=== PATIENT | female | born 1990 | race Caucasian/White ===

== ENCOUNTER 2019-12-09 20:38 | Emergency (ER) | payer OTHER, SELFPAY ==
--- NOTE | 2019-12-09 20:42 | ED_ITS ---
HPI - General Adult General Stated complaint: 10 wks , unable to keep anything down Time Seen by Provider: 12/09/19 20:42 History of Present Illness HPI narrative: 29-year-old otherwise healthy G 1 P 0 at approximately 10 weeks with persistent nausea and vomiting. Unable to keep anything down. She has tried some ODT Zofran this afternoon and probably vomited. She has lost somewhere between 3 and 5 lb. Has not yet had her 1st OB visit and was recently referred [facility] for her OB care. Review of Systems Review of Systems Narrative: Note some related constipation Denies ? fever ? cough ? cold ? chills ? chest pain ? dyspnea ? orthopnea ? wheezing ? abdominal pain ? skin changes ? rashes Patient History Medical History (Updated 12/09/19 @ 20:50 by Holli Clemons MD) Healthy adult (Acute)
[2019-12-09 20:45] VITALS: BP 124/81; PULSE 96; RESP 19; TEMP 36.6; O2SAT 99; BMI 22.1
[2019-12-09] MEDS: SODIUM CHLORIDE 0.9% 1,000 ML 1000 ML IV ×2 (21:05→21:59)
[2019-12-09] MEDS: ONDANSETRON 4 MG/2 ML INJ 8 MG IV (21:06)
[2019-12-09 21:07] LABS: Add Manual Diff / Slide Review NO; Basophils Absolute Auto 100 /uL (0-100); Basophils Percent Auto 0.6 % (0-2); Eosinophils Absolute Auto 100 /uL (0-450); Eosinophils Percent Auto 0.4 % (2-4); Hemoglobin 14.3 g/dL (12.0-16.0); Lymphocytes Absolute Auto 3700 /uL (1100-4500); Mean Corpuscular HGB Conc 34.7 % (30-36); Mean Corpuscular Hemoglobin 31.6 PG (26-34); Mean Corpuscular Volume 90.9 fL (80-100); Monocytes Absolute Auto 1000 /uL (0-900); Monocytes Percent Auto 7.4 % (3-14); Neutrophils Absolute Auto 8400 /uL (1500-7000); Neutrophils Percent Auto 63.6 % (50-75); Platelet Count 262 X10^3/uL (150-400); Red Blood Cell Count 4.51 X10^6/uL (4.0-5.2); Red Cell Distribution Width 11.8 % (11.6-14.8); White Blood Cell Count 13.1 X10^3/uL (4.5-11.0)
--- NOTE | 2019-12-09 21:35 | ED_ITS ---
HPI - Nausea/Vomiting/Diarrhea General Chief complaint: Nausea/Vomiting/Diarrhea Stated complaint: 10 wks , unable to keep anything down Time Seen by Provider: 12/09/19 20:42 Source: patient Mode of arrival: Ambulatory Limitations: no limitations History of Present Illness HPI Narrative: HPI narrative: 29-year-old otherwise healthy G 1 P 0 at approximately 10 weeks with persistent nausea and vomiting. Unable to keep anything down. She has tried some ODT Zofran this afternoon and probably vomited. She has lost somewhere between 3 and 5 lb. Has not yet had her 1st OB visit and was recently referred [facility] for her OB care. Related Data Previous Rx's Medication Instructions Recorded metoclopramide HCl [Reglan] 10 mg PO Q6H PRN #30 tab 12/09/19 Allergies Allergy/AdvReac Type Severity Reaction Status Date / Time No Known Drug Allergies Allergy Verified 12/09/19 22:16 Review of Systems Review of Systems Narrative: Denies ? fever ? cough ? cold ? chills ? chest pain ? dyspnea ? orthopnea ? wheezing ? abdominal pain ? skin changes ? rashes Patient History Medical History Healthy adult (Acute) Social History Smoking Status: Never smoker Smoking Status: Never smoker alcohol intake frequency: other Substance Use Type: does not use Exam Narrative Exam Narrative: General: Alert appropriate in no acute distress Respiratory: Able to speak in full sentences, no obvious respiratory distress Skin: No obvious rashes, warm and dry Neurologic: Grossly intact no obvious asymmetries or abnormalities Psych, appropriate insight and affect, cooperative Bedside ultrasound: Single viable intrauterine fetus with crown-rump length at 9 weeks 6 days Initial Vital Signs Initial Vital Signs: Vital Signs Temperature 97.9 F 12/09/19 20:45 Pulse Rate 96 H 12/09/19 20:45 Respiratory Rate 19 12/09/19 20:45 Blood Pressure 124/81 12/09/19 20:45 Pulse Oximetry 99 12/09/19 20:45 Course Orders Ordered: ED Orders 12/09/19 20:59 Complete Blood Count AUTO DIFF Stat Comprehensive Metabolic Panel Stat Thyroid Stimulating Hormone Stat 12/09/19 21:12 Blood Culture Stat 04/15/20 22:09 Urinalysis and Microscopic Stat Discontinued Medications Sodium Chloride (Normal Saline 0.9%) 1,000 mls @ 1,000 mls/hr IV BOLUS ONE Stop: 12/09/19 21:49 Last Admin: 12/09/19 21:05 Dose: 1,000 mls/hr Documented by: TASHIA Sodium Chloride (Normal Saline 0.9%) 1,000 mls @ 1,000 mls/hr IV BOLUS ONE Stop: 12/09/19 21:49 Last Admin: 12/09/19 21:59 Dose: 1,000 mls/hr Documented by: TASHIA Metoclopramide HCl (Reglan) 10 mg IV NOW ONE Stop: 12/09/19 22:13 Last Admin: 12/09/19 22:16 Dose: 10 mg Documented by: AUSTEN Ondansetron HCl (Zofran) 8 mg IV NOW ONE Stop: 12/09/19 20:51 Last Admin: 12/09/19 21:06 Dose: 8 mg Documented by: TASHIA Vital Signs Vital signs: Vital Signs - 8 hr 12/09/19 20:45 Temperature 97.9 F Pulse Rate 96 H Respiratory Rate 19 Blood Pressure 124/81 Pulse Oximetry 99 MDM - Nausea/Vomiting/Diarrhea Medical Records Attestation: I reviewed the patient's medical records. Lab Data Attestation: I reviewed the patient's lab results. Result diagrams: 12/09/19 20:59 12/09/19 20:59 Labs: Lab Results 12/09/19 12/09/19 12/09/19 Range/Units 20:59 20:59 20:59 WBC 13.1 H (4.5-11.0) X10^3/uL RBC 4.51 (4.0-5.2) X10^6/uL Hgb 14.3 (12.0-16.0) g/dL Hct 41.0 (36-46) % MCV 90.9 (80-100) fL MCH 31.6 (26-34) PG MCHC 34.7 (30-36) % RDW 11.8 (11.6-14.8) % Plt Count 262 (150-400) X10^3/uL Neut % (Auto) 63.6 (50-75) % Lymph % (Auto) 28.0 (25-40) % [place] % (Auto) 7.4 (3-14) % Eos % (Auto) 0.4 L (2-4) % Baso % (Auto) 0.6 (0-2) % Neut # (Auto) 8400 H (3909-4321) /uL Lymph # (Auto) 3700 (3397-6741) /uL [place] # (Auto) 1000 H (0-900) /uL Eos # (Auto) 100 (0-450) /uL Baso # (Auto) 100 (0-100) /uL Sodium 138 (137-145) mmol/L Potassium 3.9 (3.4-5.1) mmol/L Chloride 108 H (98-107) mmol/L Carbon Dioxide 20 L (22-32) mmol/L BUN 10 (7-17) mg/dL Creatinine 0.72 (0.52-1.04) mg/dL Estimated GFR > 60.0 (>60) mL/min BUN/Creatinine Ratio 13.9 (6-22) Glucose 100 (70-100) mg/dL Calcium 9.4 (8.4-10.2) mg/dL Total Bilirubin 0.3 (0.2-1.3) mg/dL AST 27 (14-36) IU/L ALT 7 (<35) IU/L Alkaline Phosphatase 92 (38-126) U/L Total Protein 7.4 (6.3-8.2) g/dL Albumin 4.3 (3.5-5.0) g/dL Globulin 3.1 (1.7-4.1) g/dL Albumin/Globulin Ratio 1.4 (1.0-2.8) TSH 0.34 L (0.47-4.68) uIU/mL Urine Color Urine Appearance Urine pH (4.5-8.0) Ur Specific [place] (1.000-1.035) Urine Protein (Negative) Urine Glucose (UA) (Negative) g/dL Urine Ketones (NEGATIVE) Urine Occult Blood (Negative) Urine Nitrate (Negative) Urine Bilirubin (NEGATIVE) Urine Urobilinogen (0.2) E.U./dL Ur Leukocyte Esterase (NEGATIVE) Urine RBC (0-5/HPF) Urine WBC (0-5/HPF) Urine Bacteria (None) Ur Culture Indicated? Micro UA Comment 04/15/20 Range/Units 22:09 WBC (4.5-11.0) X10^3/uL RBC (4.0-5.2) X10^6/uL Hgb (12.0-16.0) g/dL Hct (36-46) % MCV (80-100) fL MCH (26-34) PG MCHC (30-36) % RDW (11.6-14.8) % Plt Count (150-400) X10^3/uL Neut % (Auto) (50-75) % Lymph % (Auto) (25-40) % [place] % (Auto) (3-14) % Eos % (Auto) (2-4) % Baso % (Auto) (0-2) % Neut # (Auto) (3567-1537) /uL Lymph # (Auto) (1367-4664) /uL [place] # (Auto) (0-900) /uL Eos # (Auto) (0-450) /uL Baso # (Auto) (0-100) /uL Sodium (137-145) mmol/L Potassium (3.4-5.1) mmol/L Chloride (98-107) mmol/L Carbon Dioxide (22-32) mmol/L BUN (7-17) mg/dL Creatinine (0.52-1.04) mg/dL Estimated GFR (>60) mL/min BUN/Creatinine Ratio (6-22) Glucose (70-100) mg/dL Calcium (8.4-10.2) mg/dL Total Bilirubin (0.2-1.3) mg/dL AST (14-36) IU/L ALT (<35) IU/L Alkaline Phosphatase (38-126) U/L Total Protein (6.3-8.2) g/dL Albumin (3.5-5.0) g/dL Globulin (1.7-4.1) g/dL Albumin/Globulin Ratio (1.0-2.8) TSH (0.47-4.68) uIU/mL Urine Color Yellow Urine Appearance Clear Urine pH 7.0 (4.5-8.0) Ur Specific [place] 1.020 (1.000-1.035) Urine Protein Negative (Negative) Urine Glucose (UA) Negative (Negative) g/dL Urine Ketones Trace H (NEGATIVE) Urine Occult Blood Negative (Negative) Urine Nitrate Negative (Negative) Urine Bilirubin Negative (NEGATIVE) Urine Urobilinogen 0.2 (0.2) E.U./dL Ur Leukocyte Esterase Negative (NEGATIVE) Urine RBC None seen (0-5/HPF) Urine WBC None seen (0-5/HPF) Urine Bacteria None seen (None) Ur Culture Indicated? Cult not indicated Micro UA Comment Microscopic normal MDM Narrative Medical decision making narrative: 29-year-old at 9 weeks 6 days with emesis related to . She is feeling better after 2 L of fluid IV Zofran and IV Reglan. She is safe for home discharge. Will follow-up with [facility] for her 1[facility] OB appointment. Prescription for Reglan is given. Questions are answered. Discharge Plan Departure Patient Disposition: Home Clinical Impression: Nausea and vomiting during , Incidental intrauterine Instructions: Nausea of (Alternative Therapy), DI for Nausea -- Child Activity Restrictions/Additional Instructions: Thank you for coming in today. Congratulations on this beautiful little baby. Your blood work was reassuring. The bedside ultrasound we did in the emergency department showed a single live fetus at 9 weeks 6 days (giving you and EDC of Saturday07/08/2020) You are given 8 mg of IV Zofran and 2 L of fluid. I would encourage you to eat and drink as much as you are able to tonight now that your better hydrated. You can continue to use the Zofran prescription you have to help control nausea. I will also give you a prescription for Reglan. You can try both and see which is more effective for you. Keeping small amounts of food in your stomach and sipping on small amounts of liquid all day long may actually be the best option. 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 Hope this is a beautiful and you find tito in your new child. Prescriptions: New metoclopramide HCl [Reglan] 10 mg tablet 10 mg PO Q6H PRN (Reason: nausea and vomiting) Qty: 30 RF: 0
[2019-12-09 21:41] LABS: Alanine Aminotransferase 7 IU/L (<35); Albumin 4.3 g/dL (3.5-5.0); Albumin Globulin Ratio 1.4 (1.0-2.8); Alkaline Phosphatase 92 U/L (38-126); Aspartate Aminotransferase 27 IU/L (14-36); BUN Creatinine Ratio 13.9 (6-22); Bilirubin Total 0.3 mg/dL (0.2-1.3); Blood Urea Nitrogen 10 mg/dL (7-17); Calcium 9.4 mg/dL (8.4-10.2); Carbon Dioxide 20 mmol/L (22-32); Chloride 108 mmol/L (98-107); Estimated Glomerular Filt Rate > 60.0 mL/min (>60); Globulin 3.1 g/dL (1.7-4.1); Glucose 100 mg/dL (70-100); HEMOLYSIS < 15 (0-50); Potassium 3.9 mmol/L (3.4-5.1); Sodium 138 mmol/L (137-145); Total Protein 7.4 g/dL (6.3-8.2)
[2019-12-09 21:59] LABS: Thyroid Stimulating Hormone 0.34 uIU/mL (0.47-4.68)
[2019-12-09 22:14] LABS: Appearance Urine UA CLEAR; Bacteria Urine None Seen; Bilirubin Urine UA NEGATIVE (NEGATIVE); Color Urine UA YELLOW; Glucose Urine UA NEGATIVE (Negative); Ketones Urine UA TRACE (NEGATIVE); Leukocyte Esterase Urine UA NEGATIVE (NEGATIVE); Nitrite Urine UA NEGATIVE (Negative); Occult Blood Urine UA NEGATIVE (Negative); Protein Urine UA NEGATIVE (Negative); RBC Urine None Seen (0-5/HPF); Urobilinogen Urine UA 0.2 E.U./dL (0.2); WBC Urine None Seen (0-5/HPF)
[2019-12-09] MEDS: METOCLOPRAMIDE 10 MG/2 ML INJ IV (22:16)
[2019-12-09 22:18] LABS: Culture Indicated Urine Cult Not Indicated; Urine Comments Microscopic Normal
[2019-12-09 23:07] VITALS: BP 124/81; PULSE 96; RESP 19; O2SAT 99
--- NOTE | 2019-12-16 21:20 | PC.NURSE ---
late entry. Iv stop time 2300 12/09/2019. 2 liters was administered.
--- NOTE | 2019-12-22 09:14 | PC.NURSE ---
Late entry for 12/09/19: Iv fluids started at 21:05 and was stopped at 22:05 and 1000mls was administered. Iv fluids started at 21:49 and was stopped at 22:59 and 1000mls was administered. Total NaCl was 2000 mls.
== END 2019-12-09 23:11 | disposition home or self-care (01) ==
PROVIDERS: Emergency Provider Emergency Medicine
DX: O21.9 Vomiting of pregnancy, unspecified (principal); Z3A.10 10 weeks gestation of pregnancy
CPT/HCPCS: 36415; 80053; 81001; 84443; 85025; 87040; 96361; 96374; 96375; 99284; J2405; J2765

== ENCOUNTER → 2019-12-16 15:45 | Outpatient (CLI) | payer OTHER, SELFPAY ==
[2019-12-16 20:19] LABS: Urine N gonorrhoeae NOT DETECTED
[2019-12-16 20:34] LABS: Urine Chlamydia NOT DETECTED
== END ==
PROVIDERS: Visit Provider Obstetrics & Gynecology
DX: Z34.01 Encounter for supervision of normal first pregnancy, first trimester (principal); Z3A.10 10 weeks gestation of pregnancy
CPT/HCPCS: 87491; 87591

== ENCOUNTER → 2019-12-16 15:55 | Outpatient (CLI) | payer OTHER, SELFPAY ==
[2019-12-16 18:02] LABS: Add Manual Diff / Slide Review NO; Basophils Absolute Auto 0 /uL (0-100); Basophils Percent Auto 0.2 % (0-2); Eosinophils Absolute Auto 100 /uL (0-450); Eosinophils Percent Auto 0.6 % (2-4); Hematocrit 39.1 % (36-46); Lymphocytes Absolute Auto 2000 /uL (1100-4500); Lymphocytes Percent Auto 17.2 % (25-40); Mean Corpuscular HGB Conc 35.7 % (30-36); Mean Corpuscular Hemoglobin 32.6 PG (26-34); Mean Corpuscular Volume 91.2 fL (80-100); Monocytes Absolute Auto 700 /uL (0-900); Monocytes Percent Auto 5.9 % (3-14); Neutrophils Absolute Auto 8800 /uL (1500-7000); Neutrophils Percent Auto 76.1 % (50-75); Platelet Count 249 X10^3/uL (150-400); Red Blood Cell Count 4.29 X10^6/uL (4.0-5.2); Red Cell Distribution Width 11.8 % (11.6-14.8); White Blood Cell Count 11.5 X10^3/uL (4.5-11.0)
[2019-12-16 19:02] LABS: Appearance Urine UA CLEAR; Bilirubin Urine UA NEGATIVE (NEGATIVE); Color Urine UA YELLOW; Glucose Urine UA NEGATIVE (Negative); Ketones Urine UA TRACE (NEGATIVE); Leukocyte Esterase Urine UA NEGATIVE (NEGATIVE); Nitrite Urine UA NEGATIVE (Negative); Occult Blood Urine UA NEGATIVE (Negative); Protein Urine UA NEGATIVE (Negative); Specific Gravity Urine UA >=1.030 (1.000-1.035); Urobilinogen Urine UA 0.2 E.U./dL (0.2)
[2019-12-17 15:39] LABS: Hepatitis B Surface Antigen NEGATIVE s/c (NEGATIVE); Rubella Antibody IgG 20.8 IU/mL (>15)
[2019-12-17 15:57] LABS: HIV 1 & 2 Ab/Ag 4th Gen Combo NEGATIVE (NEGATIVE)
[2019-12-17 16:50] LABS: Hep C Virus Ab w/Reflex Quant NEGATIVE s/c (NEGATIVE)
[2019-12-18 04:07] LABS: RPR Screen Non Reactive (Non Reactive)
[2019-12-18 09:03] LABS: Varicella IgG Antibody 729 index (Immune >165)
== END ==
PROVIDERS: Referring Provider Obstetrics & Gynecology; Visit Provider Obstetrics & Gynecology
DX: Z34.01 Encounter for supervision of normal first pregnancy, first trimester (principal); Z3A.10 10 weeks gestation of pregnancy
CPT/HCPCS: 36415; 80055; 81003; 86787; 86803; 86850; 86900; 86901; 87086; 87389; 87491; 87591